=== PATIENT | male | born 1970 | race Caucasian/White ===

== ENCOUNTER 2024-01-15 16:12 | Outpatient (CLI) | payer OTHER, SELFPAY | END 2024-01-15 16:13 | disposition home or self-care (01) | PROVIDERS: PCP Family Medicine; Visit Provider Family Medicine | DX: E78.00 Pure hypercholesterolemia, unspecified (principal); R41.9 Unspecified symptoms and signs involving cognitive functions and awareness; R00.2 Palpitations; M54.2 Cervicalgia; R53.83 Other fatigue; R23.2 Flushing | CPT/HCPCS: 80053; 80061; 84403; 84443; G0103 ==